=== PATIENT | male | born 1975 | race Caucasian/White ===

== ENCOUNTER 2023-04-29 09:45 | Emergency (ER) | payer OTHER ==
[~2023-04-29] VITALS: Ht 177.8 cm; Wt 93.2 kg
[2023-04-29 10:07] VITALS: TEMP 99; O2SAT 98
[2023-04-29 11:06] LABS: BASOPHILS % 0.3 % (0.0-2.0); EOSINOPHILS % 1.1 % (0.0-5.0); HEMOGLOBIN. 15.4 g/dL (14.0-18.0); LYMPHOCYTES % 16.9 % (20.0-50.0); MEAN CORPUSCULAR HEMOGLOBIN 29.4 pg (28.0-32.0); MEAN CORPUSCULAR HGB CONC 34.1 g/dL (31.0-37.0); MEAN CORPUSCULAR VOLUME 86.1 fL (80.0-94.0); MEAN PLATELET VOLUME 9.6 fl (7.4-10.4); MONOCYTES % 5.1 % (2.0-8.0); NEUTROPHILS % 76.6 % (40.0-76.0); PLATELET 231 x1000/uL (130-400); RED BLOOD CELL COUNT 5.23 mill/uL (4.7-6.1); RED CELL DISTRIBUTION WIDTH 14.5 % (11.6-14.6); WHITE BLOOD COUNT 10.4 x1000/uL (4.5-11.0)
[2023-04-29 11:25] LABS: ALANINE AMINOTRANSFERASE 25 IU/L (13-61); ALBUMIN 4.2 g/dL (3.4-5.0); ASPARTATE AMINOTRANSFERASE 19 IU/L (15-37); BILIRUBIN TOTAL 1.4 mg/dL (0.1-1.0); CALCIUM 9.1 mg/dL (8.5-10.1); CARBON DIOXIDE 26 mEq/L (21-32); CHLORIDE 107 mEq/L (98-107); GLUCOSE 125 mg/dL (70-105); INDEX HEMOLYSI 1 (1-3); INDEX ICTERIC 1 (1-4); INDEX LIPEMIC 1 (1-3); POTASSIUM 3.8 mEq/L (3.5-5.1); SODIUM 139 mEq/L (136-145); UREA NITROGEN BLOOD 25 mg/dL (7-21)
[2023-04-29] MEDS ORDERED: ONDANSETRON HCL 4MG/2ML INJ IV STA (12:40)
[2023-04-29] MEDS ORDERED: KETOROLAC 30MG/ML VIAL IV STA (12:40)
[2023-04-29] MEDS ORDERED: SODIUM CHLORIDE 0.9% 1,000 ML IV ONE (12:45)
[2023-04-29 12:58] LABS: CLARITY URINE CLOUDY (CLEAR); COLOR URINE YELLOW (YELLOW); GLUCOSE URINE NEGATIVE (NEGATIVE); KETONES URINE TRACE (NEGATIVE); LEUKOCYTE ESTERASE URINE NEGATIVE (NEGATIVE); NITRITE URINE NEGATIVE (NEGATIVE); OCCULT BLOOD URINE 3+ (NEGATIVE); PROTEIN URINE 1+ (NEGATIVE); SPECIFIC GRAVITY URINE 1.029 (1.005-1.030); UROBILINOGEN URINE 0.2 E.U./dL (0.2-1.0)
[2023-04-29 13:17] VITALS: BP 155/101; PULSE 71; RESP 18
[2023-04-29 13:32] LABS: BACTERIA URINE 1+; MUCUS URINE TRACE /lpf (NONE/TRACE)
[2023-04-29 13:33] LABS: RBC URINE 50-100 /hpf (0-2); SQUAMOUS EPITHELIAL CELL URINE NONE SEEN /lpf (RARE/1+)
[2023-04-29 13:34] LABS: WBC URINE 0-2 /hpf (0-2)
[2023-04-29] MEDS ORDERED: IBUP-2029 MT (13:45)
[2023-04-29] MEDS ORDERED: ONDA4TAB50 MT (13:45)
[2023-04-29] MEDS ORDERED: TAMS-11 MT (13:45)
[2023-04-29] MEDS ORDERED: T3 PO (13:45)
== END 2023-04-29 14:22 | disposition home or self-care (01) ==
LOC: ER 09:45
DX: N23 Unspecified renal colic (principal); E78.00 Pure hypercholesterolemia, unspecified
CPT/HCPCS: 80053; 81003; 83690; 85025; 36415; 74176; 96361; 96374; 96375; 99285; J1885; J2405; J7030; Z7610 ×2